=== PATIENT | female | born 1950 | race Caucasian/White ===

== ENCOUNTER 2022-02-07 16:09 | Emergency (ER) | payer OTHER ==
[~2022-02-07] VITALS: Ht 160 cm; Wt 81.0 kg
[2022-02-07 18:50] LABS: Urine Bacteria NONE SEEN /hpf (None Seen); Urine Blood Negative /uL (Negative); Urine Specific Gravity 1.021 (1.001-1.035); Urine WBC 2 /hpf (0 - 5)
[2022-02-07 18:59] LABS: Basophils # (auto) 0.1 10 ^3/uL (0-0.2); Eosinophils # (auto) 0.1 10 ^3/uL (0-0.8); Eosinophils % (auto) 0.6 % (0.0-7.0); Neutrophils % (auto) 71.2 % (37.0-80.0)
[2022-02-07 19:01] LABS: Hematocrit 33.2 % (36.0-46.0); Hemoglobin 10.2 g/dL (12.2-16.2); Lymphocytes # (auto) 2.2 10 ^3/uL (0.4-5.4); Mean Corpuscular Hemoglobin 19.5 pg (28.0-32.0); Mean Corpuscular Hgb Conc. 30.7 g/dL (32.0-36.0); Mean Corpuscular Volume 63.5 fL (80.0-100.0); Monocytes # (auto) 0.5 10 ^3/uL (0-1.3); Monocytes % (auto) 5.2 % (0.0-12.0); Neutrophils # (auto) 7.2 10 ^3/uL (1.6-8.6); Red Blood Cells 5.23 10^6/uL (4.0-5.20); Red Cell Distribution Width 17.3 % (11.8-14.3); White Blood Cell 10.2 10^3/uL (4.4-10.8)
[2022-02-07 19:04] LABS: Albumin 3.4 g/dL (3.4-5.0); Calcium 8.4 mg/dL (8.5-10.1); Potassium 3.5 mmol/L (3.5-5.1)
[2022-02-07 19:09] LABS: BUN/Creatinine Ratio 21.6; Bilirubin, Total 0.4 mg/dL (0.2-1.0); Total Protein 6.6 g/dL (6.4-8.2)
[2022-02-07] MEDS ORDERED: FERR-7 PO (19:19)
[2022-02-07 19:30] VITALS: BP 162/93
== END 2022-02-07 20:00 | disposition home or self-care (01) ==
LOC: EDBD 16:09 → ER 16:15
DX: D50.9 Iron deficiency anemia, unspecified (principal); R53.1 Weakness; E11.9 Type 2 diabetes mellitus without complications; I10 Essential (primary) hypertension; Z88.0 Allergy status to penicillin; Z20.822 Contact with and (suspected) exposure to COVID-19
CPT/HCPCS: 36415; 71045; 80053; 81001; 83880; 84484; 85025; 87426; 93005

== ENCOUNTER 2023-07-15 14:41 | Inpatient (IN) | payer MEDICARE, MEDICAID ==
[~2023-07-15] VITALS: Ht 160 cm; Wt 77.5 kg
[~2023-07-15 14:41] MED LIST: FERR-7 PO
[2023-07-15 14:52] VITALS: PULSE 66; RESP 14; O2SAT 98
[2023-07-15] MEDS: SODIUM CHLORIDE 0.9% 1,000 ML IV ONE (15:53)
[2023-07-15 16:17] LABS: Basophils # (auto) 0.1 10 ^3/uL (0-0.2); Basophils % (auto) 0.7 % (0.0-2.0); Eosinophils # (auto) 0.3 10 ^3/uL (0-0.8); Hematocrit 38.7 % (36.0-46.0); Hemoglobin 12.6 g/dL (12.2-16.2); Lymphocytes # (auto) 2.5 10 ^3/uL (0.4-5.4); Mean Corpuscular Hemoglobin 30.1 pg (28.0-32.0); Mean Corpuscular Hgb Conc. 32.6 g/dL (32.0-36.0); Mean Corpuscular Volume 92.4 fL (80.0-100.0); Monocytes # (auto) 0.6 10 ^3/uL (0-1.3); Monocytes % (auto) 7.2 % (0.0-12.0); Neutrophils # (auto) 5.4 10 ^3/uL (1.6-8.6); Neutrophils % (auto) 61.1 % (37.0-80.0); Red Blood Cells 4.19 10^6/uL (4.0-5.20); Red Cell Distribution Width 13.2 % (11.8-14.3); White Blood Cell 8.8 10^3/uL (4.4-10.8)
[2023-07-15 16:22] LABS: Anion Gap 3 (5-15); Carbon Dioxide 26 mmol/L (20-30); Chloride 112 mmol/L (98-107); Potassium 4.8 mmol/L (3.5-5.1); Sodium 141 mmol/L (136-145)
[2023-07-15 16:23] LABS: Calcium 9.1 mg/dL (8.7-10.4)
[2023-07-15 16:27] LABS: Glucose 139 mg/dL (74-106)
[2023-07-15 16:28] LABS: BUN/Creatinine Ratio 22.7 (10.0-20.0); Blood Urea Nitrogen 20 mg/dL (9-23); Lipase 34 U/L (12-53)
[2023-07-15 16:33] LABS: INR 1.04 (0.9-1.15); Partial Thromboplastin Time 27.5 SEC (24.5-34.5); Prothrombin Time 10.9 sec (9.3-11.8)
[2023-07-15] MEDS ORDERED: LISI10TA34 PO (17:58)
[2023-07-15] MEDS ORDERED: OXYB5TAB24 (17:58)
[2023-07-15] MEDS ORDERED: OXYB5TAB24 PO (17:58)
[2023-07-15] MEDS ORDERED: FAMO-12 PO (17:58)
[2023-07-15] MEDS ORDERED: MIRT1TAB38 PO (17:58)
[2023-07-15] MEDS ORDERED: AMLO1TAB22 PO (17:58)
[2023-07-15] MEDS ORDERED: ATOR-47 PO (17:58)
[2023-07-15] MEDS ORDERED: CELE1CAP29 PO (17:58)
[2023-07-15] MEDS ORDERED: DEXTROSE (50%) 50ML SYRG IV PRN (18:00)
[2023-07-15] MEDS ORDERED: DOCUSATE SOD 100 MG CAP PO PRN (18:45)
[2023-07-15 19:30] VITALS: PULSE 68; RESP 18; O2SAT 97
[2023-07-15] MEDS: SODIUM CHLORIDE 0.9% 1,000 ML IV SCH (20:29)
[2023-07-15] MEDS: ACCU-CHEK COMFORT CURVE STRIP VI SCH (22:24)
[2023-07-15] MEDS: InsuLIN REG 1unit/0.01ml Soln (100units/ml) SC SCH (22:27)
[2023-07-15] MEDS: InsuLIN REG 1unit/0.01ml Soln (100units/ml) ONE (22:28)
[2023-07-15] MEDS: CELECOXIB 100 MG CAP PO SCH (22:33)
[2023-07-15] MEDS: LISINOPRIL 5 MG TAB PO SCH (22:34)
[2023-07-15] MEDS: OXYBUTYNIN CHL 5 MG TAB PO SCH (22:34)
[2023-07-15] MEDS: LISINOPRIL 5 MG TAB ONE (22:35)
[2023-07-15] MEDS: FERROUS SULFATE 325mg EC TAB PO ONE (22:35)
[2023-07-15] MEDS: OXYBUTYNIN CHL 5 MG TAB ONE (22:35)
[2023-07-15] MEDS: FERROUS SULFATE 325mg EC TAB PO SCH (22:35)
[2023-07-15 23:23] VITALS: BP 121/66; PULSE 78; RESP 16; RESP 17; TEMP 97.5; O2SAT 98
[2023-07-16] VITALS (7 sets, daily range): BP systolic 91–144; BP diastolic 40–90; PULSE 56–84; RESP 18–21; TEMP 97.5–98.7; O2SAT 93–98
[2023-07-16] MEDS: ATORVASTATIN 20 MG TAB PO SCH (10:35)
[2023-07-16] MEDS: FAMOTIDINE 20 MG TAB PO SCH (10:35)
[2023-07-16] MEDS: HYDROcodone-ACET 5/325MG TAB PO PRN (10:37)
[2023-07-16] MEDS: amLODIPine BESYLATE 5 MG TAB PO SCH (10:38)
[2023-07-16 13:14] LABS: Basophils # (auto) 0.1 10 ^3/uL (0-0.2); Basophils % (auto) 0.7 % (0.0-2.0); Eosinophils # (auto) 0.3 10 ^3/uL (0-0.8); Eosinophils % (auto) 3.6 % (0.0-7.0); Hematocrit 38.8 % (36.0-46.0); Lymphocytes # (auto) 2.1 10 ^3/uL (0.4-5.4); Lymphocytes % (auto) 26.5 % (10.0-50.0); Mean Corpuscular Hemoglobin 30.5 pg (28.0-32.0); Mean Corpuscular Hgb Conc. 33.5 g/dL (32.0-36.0); Mean Corpuscular Volume 91.1 fL (80.0-100.0); Monocytes # (auto) 0.5 10 ^3/uL (0-1.3); Monocytes % (auto) 5.8 % (0.0-12.0); Neutrophils # (auto) 4.9 10 ^3/uL (1.6-8.6); Neutrophils % (auto) 63.4 % (37.0-80.0); Nucleated Red Blood Cells % 0.1 %; Red Blood Cells 4.26 10^6/uL (4.0-5.20); Red Cell Distribution Width 13.4 % (11.8-14.3); White Blood Cell 7.8 10^3/uL (4.4-10.8)
[2023-07-16 13:20] LABS: Alanine Aminotransferase 33 U/L (7-40); Albumin 3.7 g/dL (3.2-4.8); Alkaline Phosphatase 111 U/L (46-116); Anion Gap 6 (5-15); Aspartate Aminotransferase 24 U/L (13-40); BUN/Creatinine Ratio 27.8 (10.0-20.0); Bilirubin, Total 0.5 mg/dL (0.2-1.0); Blood Urea Nitrogen 15 mg/dL (9-23); Carbon Dioxide 25 mmol/L (20-30); Chloride 110 mmol/L (98-107); Glucose 110 mg/dL (74-106); Potassium 4.6 mmol/L (3.5-5.1); Sodium 141 mmol/L (136-145); Total Protein 6.3 g/dL (5.7-8.2)
[2023-07-16] MEDS: LACTULOSE 20Gm/30ML SOLN PO SCH (22:00)
[2023-07-16] MEDS: DOCUSATE SOD 100 MG CAP PO SCH (22:13)
[2023-07-16] MEDS: HYDROCORTISONE ACET 25 MG RECTAL SUPP PR SCH (22:13)
[2023-07-17] VITALS (8 sets, daily range): BP systolic 113–146; BP diastolic 48–87; PULSE 52–84; RESP 14–22; TEMP 97.1–98.1; O2SAT 94–98
[2023-07-17] MEDS: POLYETHYLENE GLYCOL 17 GM PWDR PO SCH (10:15)
[2023-07-18] VITALS (7 sets, daily range): BP systolic 107–142; BP diastolic 51–72; PULSE 55–81; RESP 16–22; TEMP 97.5–98.3; O2SAT 92–99
[2023-07-18 08:50] LABS: Basophils # (auto) 0 10 ^3/uL (0-0.2); Basophils % (auto) 0.6 % (0.0-2.0); Eosinophils # (auto) 0.2 10 ^3/uL (0-0.8); Eosinophils % (auto) 2.9 % (0.0-7.0); Hematocrit 39.4 % (36.0-46.0); Hemoglobin 13.2 g/dL (12.2-16.2); Lymphocytes # (auto) 1.9 10 ^3/uL (0.4-5.4); Lymphocytes % (auto) 25.2 % (10.0-50.0); Mean Corpuscular Hemoglobin 30.2 pg (28.0-32.0); Mean Corpuscular Hgb Conc. 33.4 g/dL (32.0-36.0); Mean Corpuscular Volume 90.5 fL (80.0-100.0); Monocytes # (auto) 0.4 10 ^3/uL (0-1.3); Monocytes % (auto) 5.6 % (0.0-12.0); Neutrophils # (auto) 5.1 10 ^3/uL (1.6-8.6); Neutrophils % (auto) 65.7 % (37.0-80.0); Red Blood Cells 4.35 10^6/uL (4.0-5.20); Red Cell Distribution Width 12.9 % (11.8-14.3); White Blood Cell 7.7 10^3/uL (4.4-10.8)
[2023-07-18 09:06] LABS: INR 1.1 (0.9-1.15); Partial Thromboplastin Time 30.3 SEC (24.5-34.5); Prothrombin Time 11.5 sec (9.3-11.8)
[2023-07-18 09:21] LABS: Chloride 111 mmol/L (98-107); Potassium 4.5 mmol/L (3.5-5.1); Sodium 140 mmol/L (136-145)
[2023-07-18 09:22] LABS: Anion Gap 1 (5-15); Calcium 8.8 mg/dL (8.7-10.4); Carbon Dioxide 28 mmol/L (20-30)
[2023-07-18] MEDS: MAGNESIUM CITRATE SOLUTION 300 ML BTL PO ONE ×2 (09:25→22:30)
[2023-07-18 09:26] LABS: Glucose 109 mg/dL (74-106)
[2023-07-18 09:27] LABS: BUN/Creatinine Ratio 23.1 (10.0-20.0); Blood Urea Nitrogen 12 mg/dL (9-23)
[2023-07-18 09:28] LABS: Magnesium 1.9 mg/dL (1.6-2.6)
[2023-07-18 10:44] LABS: Triglycerides 79 mg/dL (< 150)
[2023-07-18 10:46] LABS: Cholesterol 141 mg/dL (< 200); LDL Cholesterol 92 mg/dL (< 100)
[2023-07-18 10:47] LABS: HDL Cholesterol 32 mg/dL (40-59)
[2023-07-19] VITALS (8 sets, daily range): BP systolic 97–136; BP diastolic 43–62; PULSE 54–69; RESP 16–17; TEMP 97.9–98.3; O2SAT 95–100
[2023-07-19] MEDS: ONDANSETRON HCL 4 MG/2 ML VIAL IV PRN (08:28)
[2023-07-19] MEDS ORDERED: POLYETHYLENE GLYCOL 17 GM PWDR PO PRN (11:00)
[2023-07-19] MEDS: GOLYTELY 4L KIT PO ONE (11:56)
[2023-07-19 13:59] LABS: Basophils # (auto) 0 10 ^3/uL (0-0.2); Basophils % (auto) 0.6 % (0.0-2.0); Eosinophils # (auto) 0.2 10 ^3/uL (0-0.8); Eosinophils % (auto) 2.1 % (0.0-7.0); Hematocrit 39.5 % (36.0-46.0); Hemoglobin 12.7 g/dL (12.2-16.2); Lymphocytes # (auto) 1.8 10 ^3/uL (0.4-5.4); Lymphocytes % (auto) 21.9 % (10.0-50.0); Mean Corpuscular Hemoglobin 29.7 pg (28.0-32.0); Mean Corpuscular Hgb Conc. 32.3 g/dL (32.0-36.0); Mean Corpuscular Volume 92.1 fL (80.0-100.0); Monocytes # (auto) 0.4 10 ^3/uL (0-1.3); Monocytes % (auto) 4.8 % (0.0-12.0); Neutrophils # (auto) 5.8 10 ^3/uL (1.6-8.6); Neutrophils % (auto) 70.6 % (37.0-80.0); Red Blood Cells 4.28 10^6/uL (4.0-5.20); White Blood Cell 8.2 10^3/uL (4.4-10.8)
[2023-07-19 14:07] LABS: Chloride 111 mmol/L (98-107); Potassium 3.9 mmol/L (3.5-5.1); Sodium 142 mmol/L (136-145)
[2023-07-19 14:08] LABS: Anion Gap 6 (5-15); Calcium 8.8 mg/dL (8.5-10.1); Carbon Dioxide 25 mmol/L (20-30)
[2023-07-19 14:13] LABS: BUN/Creatinine Ratio 13.5 (10.0-20.0); Blood Urea Nitrogen 7 mg/dL (9-23); Glucose 122 mg/dL (74-106)
[2023-07-20] VITALS (9 sets, daily range): BP systolic 100–149; BP diastolic 54–73; PULSE 51–82; RESP 13–20; TEMP 97.2–98.9; O2SAT 20–100
[2023-07-20] MEDS: ACETAMINOPHEN 325 MG TAB PO PRN (05:10)
[2023-07-20] MEDS: GOLYTELY 4L KIT PO ONE (05:11)
[2023-07-20] MEDS: MAGNESIUM CITRATE SOLUTION 300 ML BTL PO ONE (06:00)
[2023-07-20] MEDS ORDERED: MIDAZOLAM HCL 2MG/2ML 2ml VIAL (1mg/ml) ONE (11:25)
[2023-07-20] MEDS ORDERED: PROPOFOL 10 MG/ML 20 ML IV ONE (11:25)
[2023-07-20] MEDS ORDERED: fentaNYL CITRATE 100 MCG/2 ML VL ONE (11:25)
[2023-07-20] MEDS: ACCU-CHEK COMFORT CURVE STRIP VI ONE (12:15)
[2023-07-20] MEDS ORDERED: HYDROmorphone HCL 2 MG/ML VL/or syr IV PRN (12:15)
[2023-07-21] MEDS: TEMAZEPAM 15 MG CAP PO ONE (00:11)
[2023-07-21 01:00] VITALS: BP 145/51; PULSE 58; RESP 20; TEMP 97.2; O2SAT 95
[2023-07-21 08:00] VITALS: BP 107/53; PULSE 61; RESP 16; TEMP 98.3; O2SAT 97
[2023-07-21 12:00] VITALS: BP 122/74; PULSE 64; RESP 18; TEMP 98.3; O2SAT 99
[2023-07-21 13:29] VITALS: BP 122/74; PULSE 64; RESP 18; TEMP 98.3; O2SAT 99
[2023-07-21 17:00] VITALS: BP 146/89; PULSE 78; RESP 18; TEMP 98; O2SAT 96
[2023-07-21] MEDS ORDERED: TEMAZEPAM 15 MG CAP PO ONE (20:45)
[2023-07-21 21:00] VITALS: BP 144/109; PULSE 63; RESP 17; TEMP 97.9; O2SAT 92
[2023-07-22 05:00] VITALS: BP 106/44; PULSE 54; RESP 17; TEMP 97.8; O2SAT 96
[2023-07-22 08:00] VITALS: BP 139/70; PULSE 68; RESP 16; TEMP 98.4; O2SAT 95
== END 2023-07-22 12:24 | DRG 394 ==
LOC: EDBD 14:41 → ER 14:41 → OVERFLOW 18:33 → ER 18:33 → WEST WING 18:35
PROVIDERS: ADMIT Nurse Practitioner Family; ATTEND Family Medicine
PROC: 0DBC8ZX Excision of Ileocecal Valve, Via Natural or Artificial Opening Endoscopic, Diagnostic (ICD-10-PCS; 2023-07-20)
PROC: 0DBK8ZX Excision of Ascending Colon, Via Natural or Artificial Opening Endoscopic, Diagnostic (ICD-10-PCS; principal; 2023-07-20 12:14)
DX: K63.3 Ulcer of intestine (principal); I69.354 Hemiplegia and hemiparesis following cerebral infarction affecting left non-dominant side; K55.9 Vascular disorder of intestine, unspecified; K64.8 Other hemorrhoids; E11.9 Type 2 diabetes mellitus without complications; I10 Essential (primary) hypertension; E66.9 Obesity, unspecified; Z96.653 Presence of artificial knee joint, bilateral; R00.1 Bradycardia, unspecified; F03.C0 Unspecified dementia, severe, without behavioral disturbance, psychotic disturbance, mood disturbance, and anxiety; K21.9 Gastro-esophageal reflux disease without esophagitis; E78.5 Hyperlipidemia, unspecified; Z79.4 Long term (current) use of insulin; Z68.30 Body mass index [BMI] 30.0-30.9, adult; Z74.01 Bed confinement status; Z88.0 Allergy status to penicillin; Z79.899 Other long term (current) drug therapy; Z87.19 Personal history of other diseases of the digestive system; Z90.710 Acquired absence of both cervix and uterus; Z80.0 Family history of malignant neoplasm of digestive organs; Z87.891 Personal history of nicotine dependence
CPT/HCPCS: 36415; 45380; 71045; 74176; 80048; 80053; 80061; 82962; 83036; 83690; 83735; 84443; 85025; 85610; 85730; 86850; 86900; 86901; 93005; 93306; 96360; 96361; 97110; 97163; 97530; G0378; J1815; J2250; J2405; J2704